=== PATIENT | male | born 1930 | race Caucasian/White ===

== ENCOUNTER 2016-05-15 09:21 | Emergency (ER) | payer MEDICARE, OTHER ==
[~2016-05-15] VITALS: Ht 177.8 cm; Wt 79.1 kg
[2016-05-15 09:31] VITALS: BP 132/77; PULSE 81; RESP 18; TEMP 100.3; O2SAT 95
[2016-05-15] MEDS ORDERED: ASPI-110 PO (09:43)
[2016-05-15] MEDS ORDERED: TAMS0.4C4 PO (09:43)
[2016-05-15] MEDS ORDERED: PROS5TAB PO (09:43)
--- NOTE | 2016-05-15 10:07 | PD ---
HPI Chief Complaint: Cold / Flu Symptoms Time Seen by Provider: 09:53 Travel History International Travel<30 days: No Contact w/Intl Traveler<30days: No Traveled to known affect area: No History of Present Illness HPI This is an 85-year-old male who presents to the emergency department with 3 days of a productive cough with howe sputum associated with fevers and chills, sore throat and some myalgias. He's had decreased appetite. His symptoms have been constant and worsening. He's been having difficulty sleeping at night. He 's been taking DayQuil and NyQuil is not getting any better so he came to the emergency department. He is otherwise quite healthy. PFSH Past Medical History Hx Anticoagulant Therapy: Yes (81 mg asa) Cardiovascular Problems: Yes (AORTIC VALVE REGURGITATION, MVP) Genitourinary: Yes (BPH) Immunizations Current: Yes Influenza Vaccination: No Past Surgical History Genitourinary Surgery: Yes (VASECTOMY) Joint Replacement: Yes (RIGHT KNEE ARTHROSCOPY-TORN LIGAMENT) Oral Surgery: Yes (DEVIATED SEPTUM REPAIR) Other Surgery: Yes (EAR CYST REMOVAL) Social History Alcohol Use: Yes (RARE) Tobacco Use: No (QUIT) Substance Use: No Allergies-Medications (Allergen,Severity, Reaction): Coded Allergies: No Known Allergies (Unverified , 05/15/16) Reported Meds & Prescriptions Reported Meds & Active Scripts Active Reported Aspirin 81 (Aspirin) 81 Mg Tabdr 81 Mg PO DAILY Proscar (Finasteride) 5 Mg Tab 5 Mg PO HS Do not crush. Tamsulosin (Tamsulosin HCl) 0.4 Mg Cap 0.4 Mg PO DAILY Review of Systems Except as stated in HPI: all other systems reviewed are Neg Physical Exam Narrative GENERAL:Well appearing, no acute distress SKIN: Warm and dry. HEAD: Atraumatic. Normocephalic. EYES: Pupils equal and round. No injection or drainage. ENT: Moist mucous membranes. Mild posterior pharyngeal erythema. NECK: Trachea midline. CARDIOVASCULAR: Regular rate and rhythm. No murmur appreciated. RESPIRATORY: Clear to auscultation. Breath sounds equal bilaterally. GASTROINTESTINAL: Abdomen soft, non-tender, nondistended. MUSCULOSKELETAL: No obvious deformities. NEUROLOGICAL: Awake and alert. No obvious cranial nerve deficits. Moving all extremities. PSYCHIATRIC: Appropriate mood and affect; insight and judgment normal. Data Data Last Documented VS Vital Signs Date Time Temp Pulse Resp B/P Pulse Ox O2 Delivery O2 Flow Rate FiO2 05/15/16 09:37 18 96 Room Air 05/15/16 09:31 100.3 81 132/77 Orders Influenzae A/B Antigen (05/15/16 10:05) MDM Medical Decision Making Medical Screen Exam Complete: Yes Emergency Medical Condition: Yes Differential Diagnosis Influenza, pneumonia, bronchitis, sepsis Narrative Course This is a very healthy 85-year-old male who presents to the emergency department with cough, low-grade fever and sore throat. Vital signs are reassuring. Influenza test was negative. I think the patient can be discharged home with empiric treatment for bronchitis. Diagnosis Primary Impression: Bronchitis Patient Instructions: General Instructions Additional Instructions: If you develop severe chest pain, shortness of breath, sweating, lightheadedness , dizziness or difficulty breathing return to the emergency department immediately. Followup with your primary care physician in 2-3 days if your symptoms are not resolved. Med/Other Pt SpecificInfo: Prescription(s) given Scripts Promethazine-Codeine Liq 6.25-10 Mg/5 Ml Syrp5 Ml PO Q4H PRN (COUGH AND/OR COLD SYMPTOMS) #100 ML Prov:Tenisha Fregoso MD 05/15/16 Azithromycin 250 Mg [id number] Mg PO DIRECTED #6 TAB Take 2 tabs (500 mg) on day 1 then 1 tab daily x 4 days. Prov:Tenisha Fregoso MD 05/15/16 Disposition: 01 DISCHARGE HOME Condition: Stable Tenisha Fregoso MD May 15, 2016 10:06
[2016-05-15] MEDS ORDERED: AZIT250T3 PO (10:44)
[2016-05-15] MEDS ORDERED: PROM6.256 PO (10:44)
[2016-05-15 10:54] VITALS: BP 154/83
== END 2016-05-15 10:56 | disposition home or self-care (01) ==
LOC: PHED 09:21
DX: J20.9 Acute bronchitis, unspecified (principal); Z79.82 Long term (current) use of aspirin; I35.1 Nonrheumatic aortic (valve) insufficiency
CPT/HCPCS: 87804; 99284

== ENCOUNTER 2016-10-19 21:58 | Emergency (ER) | payer MEDICARE, OTHER ==
[~2016-10-19] VITALS: Ht 177.8 cm; Wt 86.6 kg
[~2016-10-19 21:58] MED LIST: ASPI-110 PO; AZIT250T3 PO; PROM6.256 PO; PROS5TAB PO; TAMS0.4C4 PO
[2016-10-19 23:05] VITALS: BP 172/71; PULSE 58; RESP 18; TEMP 97.7; O2SAT 95
[2016-10-20] MEDS ORDERED: METO50TA PO (00:15)
--- NOTE | 2016-10-20 00:23 | PD ---
HPI Chief Complaint: Musculoskeletal Complaint Time Seen by Provider: 00:18 Travel History International Travel<30 days: No Contact w/Intl Traveler<30days: No Traveled to known affect area: No History of Present Illness HPI 86-year-old male presents to the emergency department for complaint of intermittent left lower leg pain since last evening. No back pain no pallor no coolness of the lower limb. No redness no increased warmth are noted swelling. Patient states there has been no claudication or decreased activity secondary to exacerbation of discomfort with exertion. Patient does have history of aortic valve disease and mild proximal thoracic aortic aneurysm. Patient has this monitored every 6 months. Patient is not on any blood thinning agents. 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 No report of clotting disorder recent long distance travel protracted bedrest her procedure or recent injury. No report of fever or chills. No ascending erythema or groin pain. PFSH Past Medical History Narrative Medical Aortic valve disease, arrhythmia, proximal thoracic aortic aneurysm, aspirin use , BPH, vasectomy; no tobacco use; nursing notes reviewed Hx Anticoagulant Therapy: Yes (81 mg asa) Heart Rhythm Problems: Yes Cardiovascular Problems: Yes (aortic regurgitation and hx of arrythmmia) Genitourinary: Yes (BPH) Immunizations Current: Yes Tetanus Vaccination: Unknown Influenza Vaccination: Yes ?: Not Past Surgical History Surgical History: No Previous Surgery Genitourinary Surgery: Yes (VASECTOMY) Joint Replacement: Yes (RIGHT KNEE ARTHROSCOPY-TORN LIGAMENT) Oral Surgery: Yes (DEVIATED SEPTUM REPAIR) Other Surgery: Yes (EAR CYST REMOVAL) Social History Alcohol Use: No Tobacco Use: No Substance Use: No Allergies-Medications (Allergen,Severity, Reaction): Coded Allergies: No Known Allergies (Unverified , 10/20/16) verified Reported Meds & Prescriptions Reported Meds & Active Scripts Active Reported Metoprolol Tartrate 50 Mg Tab 50 Mg PO BID Proscar (Finasteride) 5 Mg Tab 5 Mg PO HS Do not crush. Tamsulosin (Tamsulosin HCl) 0.4 Mg Cap 0.4 Mg PO DAILY Review of Systems Except as stated in HPI: all other systems reviewed are Neg Physical Exam Narrative GENERAL: Well-developed well-nourished male in acute distress no respiratory distress SKIN: Warm and dry. HEAD: Normocephalic. EYES: No scleral icterus. No injection or drainage. NECK: Supple, trachea midline. No JVD or lymphadenopathy. CARDIOVASCULAR: Regular rate and rhythm without murmurs, gallops, or rubs. RESPIRATORY: Breath sounds equal bilaterally. No accessory muscle use. GASTROINTESTINAL: Abdomen soft, non-tender, nondistended. MUSCULOSKELETAL: No cyanosis, or edema. Mercedes and warm without erythema increased warmth edema pallor or coolness; dorsalis pedis pulse 2+ to palpation posterior tibialis pulses 2+ to palpation capillary refill brisk and less than 2 seconds per digit patient has intact range of motion at the hip knee ankle and digits. Patient has no focal soft tissue swelling patient has mild tenderness to the anterior tibialis muscle with palpation. Negative straight leg raising bilaterally. BACK: Nontender without obvious deformity. No CVA tenderness. Data Data Last Documented VS Vital Signs Date Time Temp Pulse Resp B/P (MAP) Pulse Ox O2 Delivery O2 Flow Rate FiO2 10/19/16 23:05 97.7 58 18 172/71 (104) 95 Orders Orders Us Leg Venous Doppler (10/20/16 ) [facility] Medical Decision Making Medical Screen Exam Complete: Yes Emergency Medical Condition: Yes Medical Record Reviewed: Yes Interpretation(s) US leg: FINDINGS: There is normal compressibility of the deep venous system from the inguinal region to the proximal calf. No echogenic clot is seen in the lumen of the common femoral, femoral, popliteal, and posterior tibial veins. There is a normal response of the venous system to proximal and distal augmentation and respiration. CONCLUSION: Normal examination. Robbin Joy MD on October 20, 2016 at 1:00 Board Certified Radiologist. This report was verified electronically. Differential Diagnosis Lower leg pain, sciatica, L5 radiculopathy, DVT, musculoskeletal pain Narrative Course Ultrasound of the left lower extremity ordered to evaluate for DVT Diagnosis Primary Impression: Left leg pain Referrals: Primary Care Physician call for appointment Patient Instructions: General Instructions Additional Instructions: May use moist heat or ice pack intermittently for symptomatically May use ibuprofen 400 mg-600 mg every 8 hours as needed for pain associated with inflammation avoid prolonged use greater than 1-2 days; recommend Tylenol/ acetaminophen for minor pain. Follow-up with primary care provider call office in a.m. to schedule follow-up appointment Return to the emergency department for any concerns or change in condition Med/Other Pt SpecificInfo: No Change to Meds Disposition: 01 DISCHARGE HOME Condition: Stable Nadira Chatterjee MD Oct 20, 2016 00:22
--- NOTE | 2016-10-20 01:02 | RADRPT ---
EXAM DATE/TIME: 10/20/2016 00:45 [facility] COMPARISON: No previous studies available for comparison. INDICATIONS : Left calf pain. MEDICAL HISTORY : Thoracic aortic aneurysm. Aortic regurgitation. SURGICAL HISTORY : Right knee arthroscopy. Vasectomy. ENCOUNTER: Initial ACUITY: 1 day PAIN SCORE: 3/10 LOCATION: Left leg. TECHNIQUE: Venous ultrasound of the leg was performed from the inguinal ligament to the proximal calf. Real-galilea e, color Doppler and spectral tracing, compression and augmentation techniques were used. FINDINGS: There is normal compressibility of the deep venous system from the inguinal region to the proximal ca lf. No echogenic clot is seen in the lumen of the common femoral, femoral, popliteal, and posterior tibial veins. There is a normal response of the venous system to proximal and distal augmentation an d respiration. CONCLUSION: Normal examination. Robbin Joy MD on October 20, 2016 at 1:00 Board Certified Radiologist. This report was verified electronically.
[2016-10-20 01:24] VITALS: BP 153/74
== END 2016-10-20 01:30 | disposition home or self-care (01) ==
LOC: PHED 21:58
DX: M79.662 Pain in left lower leg (principal); I35.8 Other nonrheumatic aortic valve disorders; I49.9 Cardiac arrhythmia, unspecified; I71.2 Thoracic aortic aneurysm, without rupture; N40.0 Benign prostatic hyperplasia without lower urinary tract symptoms; Z79.82 Long term (current) use of aspirin
CPT/HCPCS: 93971; 99284

== ENCOUNTER 2016-12-22 10:37 | Emergency (ER) | payer MEDICARE, OTHER ==
[~2016-12-22 10:37] MED LIST changes: -ASPI-110 PO; -AZIT250T3 PO; +METO50TA PO; -PROM6.256 PO
[2016-12-22 10:40] VITALS: BP 199/82; PULSE 64; RESP 16; TEMP 98.7; O2SAT 98
[2016-12-22] MEDS ORDERED: ASPI81CH CHEW (10:43)
--- NOTE | 2016-12-22 10:56 | PD ---
HPI Chief Complaint: Fall Time Seen by Provider: 10:51 Travel History International Travel<30 days: No Contact w/Intl Traveler<30days: No Traveled to known affect area: No History of Present Illness HPI This is an 86-year-old gentleman who presents to the emergency department having had a mechanical fall tripping over a barrier in the parking lot. He did not lose consciousness a does report some pain in the left side of the head , constant, moderate severity. He's had no vomiting. He has no weakness or numbness. He is not on any blood thinners. He denies any neck pain. He did injure his shoulder and has never abrasion there but is able to move it without trouble. PFSH Past Medical History Hx Anticoagulant Therapy: Yes (81 mg asa) Heart Rhythm Problems: Yes Cardiovascular Problems: Yes (aortic regurgitation and hx of arrythmmia) Genitourinary: Yes (BPH) Immunizations Current: Yes Past Surgical History Genitourinary Surgery: Yes (VASECTOMY) Joint Replacement: Yes (RIGHT KNEE ARTHROSCOPY-TORN LIGAMENT) Oral Surgery: Yes (DEVIATED SEPTUM REPAIR) Other Surgery: Yes (EAR CYST REMOVAL) Social History Alcohol Use: No Tobacco Use: No Substance Use: No Allergies-Medications (Allergen,Severity, Reaction): Coded Allergies: No Known Allergies (Unverified , 12/22/16) verified Reported Meds & Prescriptions Reported Meds & Active Scripts Active Reported Aspirin 81 Mg Chew 81 Mg CHEW DAILY Metoprolol Tartrate 50 Mg Tab 50 Mg PO BID Proscar (Finasteride) 5 Mg Tab 5 Mg PO HS Do not crush. Tamsulosin (Tamsulosin HCl) 0.4 Mg Cap 0.4 Mg PO DAILY Review of Systems Except as stated in HPI: all other systems reviewed are Neg Physical Exam Narrative GENERAL:Well appearing, no acute distress SKIN: Abrasion left posterior shoulder. 3 cm deep laceration along the left forehead above the left eyebrow. Left infraorbital ecchymoses. HEAD: Atraumatic. Normocephalic. EYES: Pupils equal and round. No injection or drainage. ENT: Moist mucous membranes NECK: Trachea midline. No cervical spine tenderness. Full painless range of motion of the neck. CARDIOVASCULAR: Regular rate and rhythm. No murmur appreciated. RESPIRATORY: Clear to auscultation. Breath sounds equal bilaterally. GASTROINTESTINAL: Abdomen soft, non-tender, nondistended. MUSCULOSKELETAL: No obvious deformities. NEUROLOGICAL: Awake and alert. No obvious cranial nerve deficits. Moving all extremities. PSYCHIATRIC: Appropriate mood and affect; insight and judgment normal. Data Data Last Documented VS Vital Signs Date Time Temp Pulse Resp B/P (MAP) Pulse Ox O2 Delivery O2 Flow Rate FiO2 12/22/16 10:40 98.7 64 16 199/82 (121) [address] Brain W/O Iv Contrast(Rout) (12/22/16 ) Ct Facial Bones W/O Iv Cont (12/22/16 ) Tetanus/Diphtheria Tox Adult (Tetanus/Di (12/22/16 11:00) Lidocai-Epi 1%-1:100,000 Inj (Xylocaine- (12/22/16 11:00) Lidocaine 1% Inj (50 Ml) (Xylocaine 1% I (12/22/16 11:15) MDM Medical Decision Making Medical Screen Exam Complete: Yes Emergency Medical Condition: Yes Interpretation(s) Afebrile, no tachycardia, hypertensive Last [address] 12/22/16 0000 Signed Impressions: Service Date/Time: Thursday, December 22, 2016 11:01 - CONCLUSION: 1. No evidence of acute bony injury. 2. Mild soft tissue change left supraorbital region without radiopaque foreign body. Eligio Gonzalez MD Head CT 12/22/16 0000 Signed Impressions: Service Date/Time: Thursday, December 22, 2016 11:01 - CONCLUSION: 1. Soft tissue injury left supraorbital lesion. No radiopaque foreign body seen. 2. No acute findings in the brain. Eligio Gonzalez MD Differential Diagnosis Subdural hematoma, epidural hematoma, subarachnoid hemorrhage, orbital floor fracture Narrative Course This is an 86-year-old male who presents to the emergency department with a closed head injury. CT of the head and face were obtained which were reassuring. Laceration on the forehead was repaired by the nurse practitioner. Patient was given tetanus. He was discharged home. Diagnosis Primary Impression: Closed head injury Qualified Codes: S09.90XA - Unspecified injury of head, initial encounter Patient Instructions: General Instructions Additional Instructions: If you develop severe worsening headache, persistent vomiting, numbness, weakness, difficulty walking or difficulty talking return to the emergency department immediately. Med/Other Pt SpecificInfo: No Change to Meds Disposition: 01 DISCHARGE HOME Condition: Stable Tenisha Fregoso MD Dec 22, 2016 10:56
[2016-12-22] MEDS ORDERED: LIDOCAINE 1%/EPINEPHrine 1:100,000 SOLN 20 ML VIAL INFIL ONE (11:00)
[2016-12-22] MEDS ORDERED: TETANUS/DIPHTHERIA TOXOID ADULT 0.5 ML VIAL IM ONE (11:00)
[2016-12-22] MEDS ORDERED: LIDOCAINE HCL 1% 50 ML VIAL INFIL ONE (11:15)
--- NOTE | 2016-12-22 11:21 | RADRPT ---
EXAM DATE/TIME: 12/22/2016 11:01 [facility] COMPARISON: No previous studies available for comparison. INDICATIONS : Fall. Left eye laceration. RADIATION DOSE: 60.48 CTDIvol (mGy) MEDICAL HISTORY : None SURGICAL HISTORY : Deviated septum. ENCOUNTER: Initial ACUITY: 1 day PAIN SCALE: 5/10 LOCATION: Left cranial TECHNIQUE: Multiple contiguous axial images were obtained of the head. Using automated exposure control and adj ustment of the mA and/or kV according to patient size, radiation dose was kept as low as reasonably a chievable to obtain optimal diagnostic quality images. DICOM format image data is available electro nically for review and comparison. FINDINGS: CEREBRUM: The ventricles are normal for age. No evidence of midline shift, mass lesion, hemorrhage or acute in farction. No extra-axial fluid collections are seen. POSTERIOR FOSSA: The cerebellum and brainstem are intact. The 4th ventricle is midline. The cerebellopontine angle i s unremarkable. EXTRACRANIAL: There is soft tissue irregularity of the left supraorbital scalp with focal area of gas. No radiopaq ue foreign bodies. SKULL: The calvaria is intact. No evidence of skull fracture. CONCLUSION: 1. Soft tissue injury left supraorbital lesion. No radiopaque foreign body seen. 2. No acute findings in the brain. Eligio Gonzalez MD on December 22, 2016 at 11:18 Board Certified Radiologist. This report was verified electronically.
--- NOTE | 2016-12-22 11:30 | RADRPT ---
EXAM DATE/TIME: 12/22/2016 11:01 [facility] COMPARISON: No previous studies available for comparison. INDICATIONS : Fall. Left eye laceration. RADIATION DOSE: 34.93 CTDIvol (mGy) MEDICAL HISTORY : None SURGICAL HISTORY : Deviated septum. ENCOUNTER: Initial ACUITY: 1 day PAIN SCORE: 4/10 LOCATION: Left facial TECHNIQUE: Volumetric scanning of the facial bones was performed. Using automated exposure control and adjustme nt of the mA and/or kV according to patient size, radiation dose was kept as low as reasonably achiev able to obtain optimal diagnostic quality images. DICOM format image data is available electronicall y for review and comparison. FINDINGS: There is mild soft tissue change in the left supra-orbital region with minimal thickening and a focal collection of gas lateral to the supraorbital region. No radiopaque foreign body seen. The bony st ructures about the left orbit are intact. The soft tissues and the retroseptal region left orbit are intact. The nasal bone, zygomatic arches, maxilla, pterygoid plates, and mandible are intact. The paranasal sinuses are clear. Degenerative changes in the TMJ bilaterally. CONCLUSION: 1. No evidence of acute bony injury. 2. Mild soft tissue change left supraorbital region without radiopaque foreign body. Eligio Gonzalez MD on December 22, 2016 at 11:22 Board Certified Radiologist. This report was verified electronically.
--- NOTE | 2016-12-22 12:09 | PD ---
Physical Exam Date Seen by Provider: Dec 22, 2016 Time Seen by Provider: 12:00 Narrative Well-nourished, well-developed 86-year-old male patient had sustained a 3 cm laceration to the left lateral frontal aspect of head proximal to the temporal bone. Patient is alert and oriented 3. In no acute distress. I was asked by provider, Dr Fregoso to repair the laceration. Data Data Last Documented VS Vital Signs Date Time Temp Pulse Resp B/P (MAP) Pulse Ox O2 Delivery O2 Flow Rate FiO2 12/22/16 10:40 98.7 64 16 199/82 (121) [address] Brain W/O Iv Contrast(Rout) (12/22/16 ) Ct Facial Bones W/O Iv Cont (12/22/16 ) Tetanus/Diphtheria Tox Adult (Tetanus/Di (12/22/16 11:00) Lidocai-Epi 1%-1:100,000 Inj (Xylocaine- (12/22/16 11:00) Lidocaine 1% Inj (50 Ml) (Xylocaine 1% I (12/22/16 11:15) MDM Supervised Visit with MARIA FERNANDA: Yes Narrative Course I was asked by provider, Dr. Fregoso to the repair the laceration the patient sustained to the left lateral frontal aspect of his head proximal to the problem. The laceration is 3 cm. Patient is well-nourished, well-developed in no acute distress. I repaired the laceration. Please see my procedural narrative. Dr. Fregoso retains care of this patient. Please see her documentation for further details and disposition. Procedures Procedure Narrative LACERATION LOCATION: Left lateral frontal aspect proximal to the temporal bone LENGTH: 3 cm NUMBER OF STITCHES/CAIO: 6 x 3. 0 Prolene REPAIR: The area of the laceration was prepped with Betadine and sterilely draped. The laceration was infiltrated with 1% lidocaine. The wound was copiously irrigated and explored without evidence of foreign body, tendon injury or neurovascular injury. The wound was closed using 6 simple interrupted sutures using 3. 0 Prolene. This was a single layer repair. A sterile dressing was applied. The patient was advised to keep the dressing clean and dry. Patient tolerated the procedure well. Alexa Ruff Dec 22, 2016 12:09
== END 2016-12-22 12:15 | disposition home or self-care (01) ==
LOC: PHEFT 10:37
DX: S09.90XA Unspecified injury of head, initial encounter (principal); S01.81XA Laceration without foreign body of other part of head, initial encounter; S40.212A Abrasion of left shoulder, initial encounter; Z23 Encounter for immunization; Z79.82 Long term (current) use of aspirin; Z86.79 Personal history of other diseases of the circulatory system; Z87.448 Personal history of other diseases of urinary system; W01.0XXA Fall on same level from slipping, tripping and stumbling without subsequent striking against object, initial encounter; Y92.481 Parking lot as the place of occurrence of the external cause
CPT/HCPCS: 12013; 70450; 70486; 90471; 90714